=== PATIENT | female | born 1960 | race Caucasian/White ===

== ENCOUNTER 2016-12-11 06:57 | Emergency (ER) | payer OTHER ==
[~2016-12-11] VITALS: Ht 160 cm; Wt 72.7 kg
[2016-12-11] MEDS ORDERED: LABETALOL HCL 20MG INJ IV PRN (07:00)
[2016-12-11 07:01] VITALS: Ht 160 cm; Wt 72.7 kg
--- NOTE | 2016-12-11 07:28 | RADRPT ---
PROCEDURE: CT Brain without. CLINICAL INDICATION: Headache TECHNIQUE: A CT of the brain was performed utilizing axial sections from the skull base through th e vertex without contrast. The scan was reviewed in soft tissue brain and high frequency resolution bone algorithm windows. Images were reviewed on a high-resolution PACS workstation. The exam CTDI = 45.01 mGy, and the DLP = 720.23 mGy-cm. One or more of the following dose reduction techniques w ere used: Automated exposure control, adjustment of the mA and / or kV according to patient size, o r use of iterative reconstruction technique. COMPARISON: None available FINDINGS: The ventricles are normal in size and midline in position. There is no intracranial hemorrhage, mid line shift, or mass effect. No abnormal extra-axial fluid collections are identified. The owens-whi te differentiation is well preserved. The basal cisterns are patent. The posterior fossa is unrema rkable. The visualized portions of the orbits are unremarkable. The paranasal sinuses and mastoid air cells are clear. No calvarial fracture or abnormality are identified. The soft tissues are unremarkable . IMPRESSION: Unremarkable CT of the brain. RPTAT: HH .Sun Timmons MD, Date Time Electronically viewed and signed by .Sun Timmons MD, on 12/11/2016 07:28 .G/
[2016-12-11 07:31] LABS: BASOPHIL # 0.1 10^3/ul (0.0-0.1); BASOPHILS % 0.7 % (0.0-2.0); EOSINOPHILS # 0.1 10^3/ul (0.0-0.5); EOSINOPHILS % 1.2 % (0.0-7.0); HEMATOCRIT 39.1 % (37.0-47.0); HEMOGLOBIN 13.8 g/dl (12.0-16.0); LYMPHOCYTES # 2.1 10^3/ul (0.8-2.9); MEAN CORPUSCULAR HEMOGLOBIN 30.7 pg (29.0-33.0); MEAN CORPUSCULAR HGB CONC 35.3 g/dl (32.0-37.0); MEAN CORPUSCULAR VOLUME 86.9 fl (82.0-101.0); MEAN PLATELET VOLUME 10.3 fl (7.4-10.4); MONOCYTE # 0.4 10^3/ul (0.3-0.9); MONOCYTES % 5.9 % (0.0-11.0); NEUTROPHIL # 4.6 10^3/ul (1.6-7.5); NEUTROPHILS % 62.7 % (39.0-77.0); PLATELET COUNT 246 10^3/UL (140-415); WHITE BLOOD COUNT 7.4 10^3/ul (4.8-10.8)
[2016-12-11 07:43] LABS: ANION GAP 14 (8-16); BLOOD UREA NITROGEN 13 mg/dl (7-20); CALCIUM 9.6 mg/dl (8.4-10.2); CARBON DIOXIDE 27 mmol/L (21-31); CHLORIDE 93 mmol/L (97-110); CREATININE 0.84 mg/dl (0.44-1.00); GLUCOSE 142 mg/dl (70-220); POTASSIUM 3.5 mmol/L (3.5-5.1); SODIUM 130 mmol/L (135-144)
--- NOTE | 2016-12-11 07:43 | RADRPT ---
PROCEDURE: XR Chest. CLINICAL INDICATION: Chest pain TECHNIQUE: Single portable view of the chest was obtained. COMPARISON: None. FINDINGS: Normal cardiomediastinal silhouette. The lungs are clear. No pleural effusion or pneumothorax. IMPRESSION: No acute cardiopulmonary disease. RPTAT:AAJJ Physician Zenaida Date Time Electronically viewed and signed by Grover Buchanan Physician on 12/11/2016 07:43 /
[2016-12-11 07:55] LABS: TROPONIN-I < 0.012 ng/ml (0.00-0.12)
[2016-12-11 07:56] LABS: INR 0.95; PROTIME 12.7 Sec (12.2-14.2)
[2016-12-11 07:57] LABS: PARTIAL THROMBOPLASTIN TIME 29.2 Sec (25.0-35.0)
[2016-12-11] MEDS ORDERED: HYDR12.58 PO (08:07)
[2016-12-11] MEDS ORDERED: CLOP75TA27 PO (08:07)
[2016-12-11] MEDS ORDERED: ATOR80TA75 PO (08:07)
[2016-12-11] MEDS ORDERED: ESCI20TA PO (08:08)
[2016-12-11] MEDS ORDERED: MECL12.574 PO (08:13)
--- NOTE | 2016-12-11 08:14 | ERD ---
ER Documentation Chief Complaint Date/Time DATE: 12/11/16 TIME: 08:14 Chief Complaint dizziness, headache and high blood pressure HPI Patient is a 56-year-old female with possible TIA and hypertension who presents with dizziness. The patient was brought in by ambulance. She came from home. She felt dizzy for about 30-45 minutes. Her blood pressure was elevated at 200/ 120. She had a mild headache which was gradual in onset. She did not take her blood pressure medications today. She has mild shortness of breath. She says that she felt "the room spinning". It started this morning when she woke up from sleep. Upon review of old medical records this is the patient's first visit to the emergency department. She cannot remember the name of her primary doctor. ROS All systems reviewed and are negative except as per history of present illness. Medications Home Meds Active Scripts Meclizine Hcl* (Antivert*) 12.5 Mg Tab, 25 MG PO Q6H Y for DIZZINESS, #20 TAB Prov:TRINI MEJIA MD 12/11/16 Reported Medications Escitalopram Oxalate* (Lexapro*) 20 Mg Tablet, 20 MG PO DAILY, #30 TAB 12/11/16 Hydrochlorothiazide* (Hydrochlorothiazide*) 12.5 Mg Tablet, 12.5 MG PO DAILY, # 30 TAB 12/11/16 Atorvastatin* (Atorvastatin*) 80 Mg Tablet, 80 MG PO QHS, #30 TAB 12/11/16 Clopidogrel Bisulfate (Clopidogrel) 75 Mg Tablet, 75 MG PO DAILY, #30 TAB 12/11/16 Allergies Allergies: Coded Allergies: No Known Allergy (Unverified , 12/11/16) PMhx/Soc History of Surgery: Yes Anesthesia Reaction: No Hx Neurological Disorder: No Hx Respiratory Disorders: No Hx Cardiac Disorders: Yes (hypertension; hypercholesterolemia) Hx Psychiatric Problems: No Hx Miscellaneous Medical Probl: Yes (vertigo) Hx Alcohol Use: No Hx Substance Use: No Hx Tobacco Use: No Smoking Status: Never smoker FmHx Family History: No diabetes Physical Exam Vitals Vital Signs Date Time Temp Pulse Resp B/P Pulse Ox O2 Delivery O2 Flow Rate FiO2 12/11/16 07:01 98.2 76 19 211/102 97 Physical Exam Const: No acute distress Head: Atraumatic Eyes: Normal Conjunctiva ENT: Normal External Ears, Nose and Mouth. Neck: Full range of motion..~ No meningismus. Resp: Clear to auscultation bilaterally Cardio: Regular rate and rhythm, no murmurs Abd: Soft, non tender, non distended. Normal bowel sounds Skin: No petechiae or rashes Back: No midline or flank tenderness Ext: No cyanosis, or edema Neur: Awake and alert, cranial nerves II through XII are intact, strength is 5 out of 5 in all 4 extremities, no slurred speech, no pronator drift Psych: Normal Mood and Affect Result Diagram: 12/11/1670412/11/16704 Results 24 hrs Laboratory Tests Test 12/11/16 07:05 12/11/16 07:06 White Blood Count 7.410^3/ul Red Blood Count 4.5010^6/ul Hemoglobin 13.8g/dl Hematocrit 39.1% Mean Corpuscular Volume 86.9fl Mean Corpuscular Hemoglobin 30.7pg Mean Corpuscular Hemoglobin Concent 35.3g/dl Red Cell Distribution Width 12.0% Platelet Count 65914^3/UL Mean Platelet Volume 10.3fl Neutrophils % 62.7% Lymphocytes % 29.0% Monocytes % 5.9% Eosinophils % 1.2% Basophils % 0.7% Nucleated Red Blood Cells % 0.0/100WBC Neutrophils # 4.610^3/ul Lymphocytes # 2.110^3/ul Monocytes # 0.410^3/ul Eosinophils # 0.110^3/ul Basophils # 0.110^3/ul Nucleated Red Blood Cells # 0.010^3/ul Prothrombin Time 12.7Sec Prothrombin Time Ratio 1.0 INR International Normalized Ratio 0.95 Activated Partial Thromboplast Time 29.2Sec Sodium Level 130mmol/L Potassium Level 3.5mmol/L Chloride Level 93mmol/L Carbon Dioxide Level 27mmol/L Anion Gap 14 Blood Urea Nitrogen 13mg/dl Creatinine 0.84mg/dl Glucose Level 142mg/dl Calcium Level 9.6mg/dl Troponin I < 0.012ng/ml Bedside Glucose 140mg/dL Current Medications Medications (Trade) Dose Ordered Sig/Earl Route PRN Reason Start Time Stop Time Status Last Admin Dose Admin Labetalol HCl (Labetalol) 20 mg Q20M PRN IV ELEVATED BLOOD PRESSURE 12/11/16 07:00 12/11/16 07:30 Procedures/MDM EKG read by me: Rate/Rhythm: Regular rate and rhythm at a rate of 66 Intervals: Normal Impression: No evidence of ischemia or arrhythmia Chest x-ray negative per radiology. CT scan of the brain negative per radiology. Patient is a 56-year-old female presents with dizziness. She has no signs of stroke here in the emergency department. Her blood pressure was elevated and she was given labetalol IV which did improve her blood pressure. She has a normal neurologic exam. Laboratory studies show a mild hyponatremia but otherwise are normal. I doubt stroke, intracranial hemorrhage, or intracranial mass. I doubt meningitis. The patient will be discharged home but will need to follow-up closely with her primary doctor within 24-48 hours. She is taking 12.5 mg of hydrochlorothiazide daily which may be a low dose for her and I told her that she needs to discuss blood pressure management with her primary doctor who can make changes. The patient understands the plan and is okay for discharge at this time. Critical Care: Time: 35 minutes excluding all billable procedures. Treatments/Evaluations: Close monitoring and treatment of unstable vital signs, cardiorespiratory, and neurologic status, while maintaining tight balance of fluid, respiratory, and cardiac interventions. Departure Diagnosis: Primary Impression: Hypertension Hypertension type: essential hypertension Qualified Code: I10 - Essential hypertension Additional Impression: Dizziness Condition: Fair Patient Instructions: High Blood Pressure (Hypertension), Dizziness, Unk Cause Referrals: Your doctor Additional Instructions: Llame al doctor MAANA y carole marivel PRAKASH PARA DENTRO DE 1-2 ESCOBAR.Dgale a la secretaria que nosotros le instruimos hacer esta prakash.Avise o llame si garcia condicin se empeora antes de la prakash. Regresa aqui si peor o no mejor. TRINI MEJIA MD Dec 11, 2016 08:14
[2016-12-11 08:29] LABS: ADD UMIC YES; UR AMORPHOUS CRYSTAL FEW /HPF (NONE SEEN); UR ASCORBIC ACID 40 mg/dL (NEGATIVE); UR BILIRUBIN (Dip) NEGATIVE (NEGATIVE); UR BLOOD (Dip) NEGATIVE (NEGATIVE); UR CLARITY CLOUDY (CLEAR); UR COLOR YELLOW (YELLOW); UR GLUCOSE (Dip) NEGATIVE (NEGATIVE); UR KETONES (Dip) 1+ mg/dL (NEGATIVE); UR LEUKOCYTE ESTERASE (Dip) TRACE Leu/ul (NEGATIVE); UR MUCUS FEW /HPF (NONE SEEN); UR NITRITE (Dip) NEGATIVE (NEGATIVE); UR RBC 9 /HPF (0-5); UR SPECIFIC GRAVITY (Dip) 1.013 (1.003-1.030); UR TOTAL PROTEIN (Dip) 1+ mg/dl (NEGATIVE); UR UROBILINOGEN (Dip) NEGATIVE (NEGATIVE)
[2016-12-11 08:37] VITALS: BP 178/88; PULSE 70; RESP 18
[2016-12-11 08:43] LABS: BARBITURATES NEGATIVE (NEGATIVE); BENZODIAZEPINES NEGATIVE (NEGATIVE); CANNABINOIDS NEGATIVE (NEGATIVE); COCAINE NEGATIVE (NEGATIVE); OPIATES NEGATIVE (NEGATIVE)
== END 2016-12-11 08:40 | disposition home or self-care (01) ==
LOC: E/R 06:57
DX: I10 Essential (primary) hypertension (principal); R07.9 Chest pain, unspecified
CPT/HCPCS: 36415; 70450; 71010; 80048; 80307; 81001; 82962; 83036; 84484; 85025; 85610; 85730; 93005; 96374; Z7502; Z7610